=== PATIENT | female | born 1960 | race Caucasian/White ===

== ENCOUNTER 2022-02-23 15:02 | Outpatient (REF) | payer OTHER, SELFPAY ==
--- NOTE | ~2022-02-23 | CT_ITS ---
EXAMINATION: CT CHEST SCREENING CLINICAL INFORMATION: Current smoker. 46. COMPARISON: Previous chest x-ray 2006 TECHNIQUE: Multidetector volumetric CT imaging of the chest is performed without contrast using low dose technique. Additional 2D coronal and sagittal reformatted images and axial 3D maximum intensity projection (MIP) images are generated on the CT workstation. This CT examination was performed using dose optimization techniques as appropriate, variously including the following: *Automated exposure control *Adjustment of mA and/or kV according to patient size (this includes techniques or standardized protocols for targeted exams where dose is matched to indication/reason for exam; i.e. extremities or head) *Use of iterative reconstruction technique DLP: 56 mGy-cm FINDINGS: LUNGS: There is evidence of emphysema. There is a 2 mm noncalcified right middle lobe nodule axial image 247 series 5. There is focal bronchiectasis in the anterior basal right lower lobe at the costophrenic angle example axial image 336 series 5. There is a 3 mm peripheral or subpleural calcified right lower lobe nodule axial image 263 series 5. MEDIASTINUM: The mediastinum is normal. CORONARY ARTERY CALCIFICATION: None visualized on this study. PLEURA: There is no pleural effusion. No pleural mass or thickening. AXILLA: No lymphadenopathy. UPPER ABDOMEN: Unremarkable OSSEOUS STRUCTURES: Degenerative changes of the spine. CT/CT lung screening IMPRESSION: Emphysema. Small pulmonary nodules. Mild focal bronchiectasis in the right lower lobe. ASSESSMENT: Lung-RADS category 2: Benign RECOMMENDATION: Annual low-dose chest CT follow-up recommended.
== END 2022-02-23 15:03 | disposition home or self-care (01) ==
LOC: HO.CT 15:02
PROVIDERS: PCP Internal Medicine Geriatric Medicine; Visit Provider Physician Assistant Medical
DX: Z12.2 Encounter for screening for malignant neoplasm of respiratory organs (principal); F17.210 Nicotine dependence, cigarettes, uncomplicated
CPT/HCPCS: 71271; G0296

== ENCOUNTER 2022-11-13 15:07 | Outpatient (REF) | payer OTHER, SELFPAY | END 2022-11-13 15:08 | disposition home or self-care (01) | LOC: HO.HHCX 15:07 | PROVIDERS: Visit Provider Registered Nurse | DX: M54.12 Radiculopathy, cervical region (principal) | CPT/HCPCS: 72050 ==

== ENCOUNTER 2022-12-27 12:49 | Outpatient (AMB) | payer OTHER, SELFPAY ==
--- NOTE | 2022-12-27 13:03 | A.OFFVIS_ITS ---
Intake Vital Signs 12/27/22 13:14 Weight 180 lb 2 oz BP 140/82 H Blood Pressure Location Lt brachial Position Sitting Respiration 16 Pulse 83 Pulse Source Pulse Oximeter Pulse Oximetry (%) 97 Oxygen Delivery Method Room Air Intake Visit Reasons: Cervical Radiculopathy Allergies Penicillins Allergy (Verified 12/27/22 13:14) Unknown HPI HPI Comments History of Present Illness Details Patricia is a very pleasant 62 year old female who presents to the office today for evaluation and management of her left shoulder/neck pain. Patient reports the pain started last month, she was given flexeril and prednisone at her pcp office, had an xray of cspine and was referred here. Today patient reports pain is 0/10. She reports the pain is well controlled during the day but will wake her up at night. She states that she is not able to lift heavy objects with her right arm and she experiences tingling of her right 5th finger but no numbness or tingling to any other part of her right upper extremity. She denies pain with range of motion of her head neck or shoulders. Of note patient has large growth to left side of her neck. She is currently undergoing treatment and states that she is scheduled for surgical removal of a noncancerous tumor. Patient has tried NSAIDs, muscle relaxers and prednisone taper. She has not tried physical therapy, chiropractor, acupuncture, massage or injections. In terms of muscle damage condition is described as pulsing, throbbing, pounding, pinching, cramping and crushing. Pain is impacting her ability to sleep normally, perform activities daily living and function normally. [facility] Medical History (Updated 12/27/22 @ 13:21 by Lissy Singh APRN, SENIOR CARE SPECIALIST) Asthma Depression Lumbar herniated disc Nicotine dependence, cigarettes, uncomplicated Personal history of nicotine dependence Surgical History (Updated 02/23/22 @ 14:47 by Delmy Molina PA-C) History of hysterectomy History of surgery on right wrist Social History (Updated 02/23/22 @ 15:05 by Delmy Molina PA-C) Alcohol intake: current Alcohol intake frequency: holidays/special occasions only Patient Tobacco Use Status: Current everyday Tobacco user Tobacco use type: Cigarette Years Smoked: (onset 16yo , 1/2-1ppd x 45yrs, 30+PYH) Review of Systems Const All systems reviewed & are unremarkable except as noted in HPI and below Physical Exam Vital Signs: Last Vital Signs Pulse 83 12/27/22 13:14 Resp 16 12/27/22 13:14 BP 140/82 H 12/27/22 13:14 Pulse Ox 97 12/27/22 13:14 Oxygen Delivery Method Room Air 12/27/22 13:14 General: awake, alert, oriented. Answers questions appropriately. Fully engaged in examination. Skin: warm, dry, intact without visible rashes or lesions. HEENT: Normocephalic. Conjuntivae clear without exudate. Sclera non-icteric. Hearing intact. Large growth noted lateral left neck. Cardiac: External chest normal in appearance. Respiratory: No signs of trauma. No signs of respiratory distress. No cough, audible wheezing or stridor. Abdomen: without gross distension. MS: No obvious swelling or deformities. Able to transition from sit to stand unassisted. Ambulates with bilaterally normal heel strike and toe off Neurological: Oriented to person, place, time and situation. Thought process intact. No gait abnormalities appreciated. Psychiatric: Appropriate mood and affect. Good judgment and insight. Back/Spine/Pelvis Other: Cervical Spine: Visible inspection without gross abnormality Moderate tenderness throughout right middle trapezius muscles, with palpable trigger points noted. Nontender to palpation over paraspinal muscles Nontender to palpation over cervical vertebrae Patient with full cervical ROM in all planes ? Spurling compression test negative. Elvey's tension test negative Lhermitte's test negative. BUE strength 5/5 DTR symmetrical and intact bilaterally.? 2+ radial pulses.? Extrem Right upper extremity: shoulder/upper arm Details: normal ROM; no tenderness and no swelling Results Reviewed Results Reviewed: 11/13/2022 EXAMINATION: XR CERVICAL SPINE FINDINGS: There is lordotic straightening. C5-C6 and C6-C7 disc space narrowing and spurring. Multilevel neuroforaminal narrowings most pronounced right C3-C4, and bilateral C5-C6 and C6-C7 levels. Odontoid is intact, posterior elements are aligned and no prevertebral soft tissue swelling seen. Nuchal calcification. Lung apices are clear. IMPRESSION: Cervical spondylosis with neuroforaminal narrowings as described. Assessment & Plan Assessment & Plan (1) Neuropathy: Comment: right 5th digit Code(s): G62.9 - Polyneuropathy, unspecified (2) Trapezius muscle strain: Code(s): S46.819A - Strain of other muscles, fascia and tendons at shoulder and upper arm level, unspecified arm, initial encounter Plan Patricia is a very pleasant 62-year-old female who presented to the office today for evaluation management of acute right arm, neck and shoulder pain with associated tingling of her right 5th digit. Given patients current report of 0/10 pain, assessment to determine main pain generator is difficult. Moderate tenderness to right middle trapezius with palpable trigger points. Plan for physical therapy eval and treat. Order has been placed. Patient offered refill of her muscle relaxers which she declined. She was instructed to call the office if she reconsiders. EMG ordered to evaluate neuropathy of the right hand/5th digit. All questions and concerns have been answered and patient agrees with the plan. Follow up after PT/EMG, sooner if needed. Orders: Orders NE electromyogram (EMG) Today G62.9 - Polyneuropathy, unspecified PT Evaluation and Treatment Today S46.819A - Strain of other muscles, fascia and tendons at shoulder and upper arm level, unspecified arm, initial encounter Coding Level of Care Code New Pt Level 4 (55330) Diagnoses Neuropathy G62.9 Trapezius muscle strain S46.819A
[2022-12-27 13:14] VITALS: BP 140/82; PULSE 83; RESP 16; O2SAT 97
== END 2022-12-27 13:16 | disposition home or self-care (01) ==
PROVIDERS: PCP Internal Medicine Geriatric Medicine; Visit Provider Registered Nurse Emergency
DX: G62.9 Polyneuropathy, unspecified (principal); S46.819A Strain of other muscles, fascia and tendons at shoulder and upper arm level, unspecified arm, initial encounter
CPT/HCPCS: 99204

== ENCOUNTER → 2022-12-27 12:49 | Outpatient (BNVA) | payer OTHER, SELFPAY | PROVIDERS: PCP Internal Medicine Geriatric Medicine; Visit Provider Registered Nurse Emergency | DX: S46.819A Strain of other muscles, fascia and tendons at shoulder and upper arm level, unspecified arm, initial encounter (principal); G62.9 Polyneuropathy, unspecified | CPT/HCPCS: 99202 ==

== ENCOUNTER 2023-01-28 13:55 | Outpatient (REF) | payer OTHER, SELFPAY ==
[2023-01-28 15:56] LABS: MANUAL DIFF FLAG NO
[2023-01-28 16:07] LABS: Basophils Percent Auto 0.4 % (0-2); Eosinophils Absolute Auto 0.2 X10*3/uL (0.0-0.4); Eosinophils Percent Auto 2.2 % (0-4); Hematocrit 41.1 % (37.0-47.0); Hemoglobin 13.4 g/dl (12.0-16.0); Imm Gran Abs Auto 0.02 X10*3/uL (0.00-0.03); Imm Gran Pct Auto 0.3 % (0.0-0.4); Lymphocytes Absolute Auto 2.1 X10*3/uL (1.2-4.9); Lymphocytes Percent Auto 29.7 % (20-40); Mean Corpuscular HGB Conc 32.6 g/dl (31.0-35.0); Mean Corpuscular Volume 91.9 fL (80.0-98.0); Mean Platelet Volume 10.8 fL (9.4-12.3); Monocytes Absolute Auto 0.3 X10*3/uL (0.1-1.2); Monocytes Percent Auto 4.8 % (2-11); Neutrophils Absolute Auto 4.3 x10*3/uL (2.0-8.3); Neutrophils Percent Auto 62.6 % (45-73); Platelet Count 323 X10*3/uL (160-400); Red Blood Count 4.47 X10*6/uL (4.20-5.50); Red Cell Distribution Width 12.9 % (11.0-16.0); White Blood Count 6.9 X10*3/uL (4.8-10.8)
[2023-01-28 16:26] LABS: Anion Gap 9 (12-20); Blood Urea Nitrogen 12 mg/dL (9-16); Calcium 9.6 mg/dL (8.4-10.2); Carbon Dioxide 25 mmol/L (22-29); Chloride 111 mmol/L (96-108); Estimated Glomerular Filt Rate > 60; Glucose Random 84 mg/dL (60-115); Potassium 3.8 mmol/L (3.3-5.1); Sodium 141 mmol/L (135-145)
== END 2023-01-28 13:56 | disposition home or self-care (01) ==
LOC: HO.HHCL 13:55
PROVIDERS: Visit Provider Internal Medicine Geriatric Medicine
DX: I10 Essential (primary) hypertension (principal); D11.0 Benign neoplasm of parotid gland
CPT/HCPCS: 36415; 80048; 85025

== ENCOUNTER 2023-02-07 07:56 | Outpatient (REF) | payer OTHER, SELFPAY ==
--- NOTE | 2023-02-07 08:31 | EMG_ITS ---
Right median and ulnar motor and sensory studies were performed. Right radial sensory study was performed and paraspinal muscles were tested with a needle. IMPRESSION: 1. Mild right median neuropathy across carpal tunnel. 2. Mild right ulnar neuropathy across cubital tunnel. MD KARMA Ureña/FRANCO / [id number]
== END 2023-02-07 07:57 | disposition home or self-care (01) ==
LOC: HO.NEURO 07:56
PROVIDERS: PCP Internal Medicine Geriatric Medicine; Visit Provider Registered Nurse Emergency
DX: G62.9 Polyneuropathy, unspecified (principal)
CPT/HCPCS: 95886; 95910

== ENCOUNTER 2023-02-12 11:04 | Outpatient (REF) | payer OTHER, SELFPAY ==
--- NOTE | ~2023-02-12 | MR_ITS ---
EXAMINATION: MR CERVICAL SPINE WITHOUT CONTRAST CLINICAL INFORMATION: Radiculopathy COMPARISON: None TECHNIQUE: MRI of the cervical spine was obtained using routine sequences without contrast. FINDINGS: The craniocervical junction is intact. The cervical lordosis is preserved. Trace retrolisthesis at C5-C6. Vertebral body heights are normal without acute compression fracture. No suspicious osseous lesion. Intraosseous hemangioma within the T2 vertebral body. Multilevel disc desiccation with moderate C5-C6 and C6-C7 and otherwise milder disc height loss. There are multilevel degenerative changes with level by level detail as follows: C2-C3: Disc osteophyte complex with bilateral uncovertebral joint hypertrophy and right greater than left facet arthrosis. No spinal canal stenosis. Moderate right without left neural foraminal stenosis. C3-C4: Disc osteophyte complex with bilateral uncovertebral joint hypertrophy and bilateral facet arthrosis, severe and hypertrophic on the left. No spinal canal stenosis. Severe right without left neural foraminal stenosis. C4-C5: Disc osteophyte complex with superimposed central disc protrusion, bilateral uncovertebral joint hypertrophy and bilateral facet arthrosis with ligamentum flavum thickening. Moderate to severe spinal canal stenosis with cord impingement and ventral cord flattening, severe left and moderate right neural foraminal stenosis. C5-C6: Disc osteophyte complex with broad-based paracentral disc protrusion, bilateral uncovertebral joint hypertrophy and bilateral facet arthrosis with ligamentum flavum thickening. Severe spinal canal stenosis with cord compression and presumed chronic compressive myelopathy/myelomalacia within the bilateral dorsal cord and severe bilateral neural foraminal stenosis. C6-C7: Disc osteophyte complex with bilateral uncovertebral joint hypertrophy and mild lateral facet arthrosis. Mild spinal canal narrowing with suggestion of ventral cord flattening and severe bilateral neural foraminal stenosis. C7-T1: Asymmetric right uncovertebral joint hypertrophy with right foraminal disc protrusion contributing to severe right neural foraminal stenosis and compression of the exiting right C8 nerve root. No spinal canal or left neural foraminal stenosis. Right paracentral/foraminal disc osteophyte protrusion at T2-T3 causes flattening along the right ventral cord and moderate right neural foraminal stenosis with mass effect along the exiting right T2 nerve root. No epidural fluid collection, mass, or hematoma. No significant abnormalities of the paraspinal musculature. The flow voids of the major cervical vessels are maintained. Retropharyngeal course of the imaged distal right cervical ICA. The visualized intracranial structures are normal. Incompletely characterized 4.2 cm heterogeneous partially cystic lesion involving the superficial and to a lesser extent deep lobes of the left parotid gland with rind of soft tissue along its posteromedial margin, traversing septations, and fluid-hematocrit level. There is bulging of the overlying skin contour. ENT consultation advised to guide further management. MR/MR cervical spine wo con IMPRESSION: 1. Multilevel cervical spondylosis with severe spinal canal stenosis at C5-C6 with cord compression and presumed chronic compressive myelopathy/myelomalacia. Moderate to severe C4-C5 spinal canal stenosis with cord impingement. Varying degrees of severe bilateral neural foraminal stenosis, most pronounced on the right at C7-T1 where a right foraminal disc protrusion contributes to severe stenosis and compression of the exiting right C8 nerve root. Right paracentral/foraminal disc osteophyte protrusion at T2-T3 flattens the right ventral cord and contributes to moderate right neural foraminal stenosis with mass effect along the exiting right T2 nerve root. 2. 4.2 cm hemorrhagic and partially cystic/solid lesion involving the superficial greater than deep lobes of the left parotid gland for which ENT consultation and correlation with tissue fluid sampling is advised. Findings to be called to the ordering clinician by a [facility].
== END 2023-02-12 11:05 | disposition home or self-care (01) ==
LOC: HO.MRI 11:04
PROVIDERS: PCP Internal Medicine Geriatric Medicine; Visit Provider Registered Nurse
DX: M54.12 Radiculopathy, cervical region (principal)
CPT/HCPCS: 72141

== ENCOUNTER 2023-02-27 15:00 | Outpatient (RCR) | payer OTHER, SELFPAY ==
[2023-02-15 13:09] VITALS: BP 169/90
== END 2023-03-29 11:41 | disposition home or self-care (01) ==
LOC: HO.PT 15:00
PROVIDERS: PCP Internal Medicine Geriatric Medicine; Visit Provider Registered Nurse Emergency
DX: S46.811D Strain of other muscles, fascia and tendons at shoulder and upper arm level, right arm, subsequent encounter (principal); G62.9 Polyneuropathy, unspecified
CPT/HCPCS: 97110; 97140; 97161; 97530

== ENCOUNTER 2023-08-14 16:14 | Outpatient (REF) | payer OTHER, SELFPAY ==
[2023-08-14 17:43] LABS: MANUAL DIFF FLAG NO
[2023-08-14 18:15] LABS: Anion Gap 13 (12-20); Blood Urea Nitrogen 14 mg/dL (9-16); Calcium 10.1 mg/dL (8.4-10.2); Carbon Dioxide 27 mmol/L (22-29); Chloride 107 mmol/L (96-108); Estimated Glomerular Filt Rate > 60; Glucose Random 93 mg/dL (60-115); Potassium 4.3 mmol/L (3.3-5.1); Sodium 143 mmol/L (135-145)
[2023-08-14 18:20] LABS: Basophils Percent Auto 0.4 % (0-2); Eosinophils Absolute Auto 0.2 X10*3/uL (0.0-0.4); Eosinophils Percent Auto 2.9 % (0-4); Hemoglobin 13.4 g/dl (12.0-16.0); Imm Gran Abs Auto 0.02 X10*3/uL (0.00-0.03); Imm Gran Pct Auto 0.3 % (0.0-0.4); Lymphocytes Absolute Auto 2.6 X10*3/uL (1.2-4.9); Lymphocytes Percent Auto 34.9 % (20-40); Mean Corpuscular HGB Conc 33.5 g/dl (31.0-35.0); Mean Corpuscular Hemoglobin 30.4 pg (27.0-33.0); Mean Corpuscular Volume 90.7 fL (80.0-98.0); Mean Platelet Volume 10.3 fL (9.4-12.3); Monocytes Absolute Auto 0.4 X10*3/uL (0.1-1.2); Monocytes Percent Auto 5.1 % (2-11); Neutrophils Absolute Auto 4.1 x10*3/uL (2.0-8.3); Neutrophils Percent Auto 56.4 % (45-73); Platelet Count 344 X10*3/uL (160-400); Red Blood Count 4.41 X10*6/uL (4.20-5.50); Red Cell Distribution Width 12.9 % (11.0-16.0); White Blood Count 7.3 X10*3/uL (4.8-10.8)
== END 2023-08-14 16:15 | disposition home or self-care (01) ==
LOC: HO.HHCL 16:14
PROVIDERS: Visit Provider Family Medicine
DX: Z01.818 Encounter for other preprocedural examination (principal); I10 Essential (primary) hypertension
CPT/HCPCS: 36415; 80048; 85025

== ENCOUNTER 2023-09-25 14:11 | Outpatient (REF) | payer OTHER, SELFPAY ==
--- NOTE | ~2023-09-25 | MM_ITS ---
EXAMINATION: MM SCREENING DIGITAL BREAST TOMOSYNTHESIS, BILATERAL CLINICAL INFORMATION: Screening. Asymptomatic. COMPARISON: Mammography: No prior available. This will serve as the patient's new baseline exam. TECHNIQUE: Digital breast tomosynthesis is performed in both the craniocaudal and mediolateral oblique views along with computer-aided detection (CAD). Synthesized 2D images are generated from the tomosynthesis. FINDINGS: The breasts are almost entirely fatty (ACR BI-RADS breast composition Category a). There is a 5 mm intramammary lymph node with tiny fatty hilum in the upper outer aspect right breast, subdermally located. This is benign. There are no suspicious masses, suspicious grouped calcifications, or areas of architectural distortion in either breast. MM/MM tomosynthesis screening BI IMPRESSION: No mammographic evidence of malignancy. ASSESSMENT: BI-RADS BI-RADS 2 - Benign Findings RECOMMENDATION: Routine annual mammography screening. 1 year F/U This examination should not preclude the clinical evaluation of a suspicious palpable abnormality. This patient's information was entered into a reminder system with a target due date for their next mammogram.
== END 2023-09-25 14:12 | disposition home or self-care (01) ==
LOC: HO.MAMMO 14:11
PROVIDERS: PCP Internal Medicine Geriatric Medicine; Visit Provider Internal Medicine Geriatric Medicine
DX: Z12.31 Encounter for screening mammogram for malignant neoplasm of breast (principal)
CPT/HCPCS: 77063; 77067

== ENCOUNTER → 2023-09-25 14:45 | Outpatient (BNV) | payer OTHER, SELFPAY | PROVIDERS: PCP Internal Medicine Geriatric Medicine; Visit Provider Radiology Diagnostic Radiology | DX: Z12.31 Encounter for screening mammogram for malignant neoplasm of breast (principal) | CPT/HCPCS: 77063; 77067 ==

== ENCOUNTER 2023-12-16 10:04 | Outpatient (REF) | payer OTHER, SELFPAY ==
[2023-12-16 11:48] LABS: HIV AB/AG Nonreactive (Nonreactive); HIV Num 1 0.05 S/CO (0.00-0.99)
[2023-12-16 11:55] LABS: Erythrocyte Sedimentation Rate 19 MM/HR (0-20)
[2023-12-16 12:00] LABS: Alanine Aminotransferase 29 U/L (0-31); Albumin Level 4.1 g/dL (3.5-5.0); Alkaline Phosphatase 66 U/L (39-117); Anion Gap 12 (12-20); Aspartate Amino Transferase 20 U/L (5-31); Bilirubin Total 0.5 mg/dL (0.0-1.0); Blood Urea Nitrogen 14 mg/dL (9-16); C Reactive Protein 0.41 mg/dL (< or = 0.50); Calcium 9.4 mg/dL (8.4-10.2); Carbon Dioxide 24 mmol/L (22-29); Chloride 111 mmol/L (96-108); Estimated Glomerular Filt Rate > 60; Glucose Random 94 mg/dL (60-115); Potassium 4.1 mmol/L (3.3-5.1); Sodium 143 mmol/L (135-145); Total Protein 7.1 g/dL (6.5-8.0); Uric Acid 5.4 mg/dL (2.4-5.7)
[2023-12-16 12:02] LABS: Rheumatoid Factor < 13.0 IU/mL (<15.0)
[2023-12-16 12:20] LABS: TSH reflex Free T4 2.99 uIU/mL (0.32-4.0)
[2023-12-17 21:19] LABS: Anti DNA DS Antibody <1 IU/mL
[2023-12-18 02:18] LABS: Cyclic Citrullinated Peptide <16 UNITS
[2023-12-18 12:48] LABS: RPR Rapid Plasma Reagin NON-REACTIVE (NON-REACTIVE)
[2023-12-18 14:09] LABS: HCV Log PCR <1.18 NOT DETECTED Log IU/mL (NOT DETECTED); HepC Viral Load <15 NOT DETECTED IU/mL (NOT DETECTED)
== END 2023-12-16 10:05 | disposition home or self-care (01) ==
LOC: HO.HHCL 10:04
PROVIDERS: Visit Provider Internal Medicine
DX: M25.50 Pain in unspecified joint (principal)
CPT/HCPCS: 36415; 80053; 84443; 84550; 85652; 86140; 86200; 86225; 86431; 86592; 87389; 87522

== ENCOUNTER 2024-03-30 12:43 | Outpatient (AMB) | payer OTHER, SELFPAY ==
--- NOTE | 2024-03-30 12:47 | MHC.OFFVIS ---
Vital Signs 03/30/24 12:58 Height 5 ft 6 in Weight 202 lb 13.204 oz BMI 32.7 BP 140/80 H Blood Pressure Location Rt brachial Position Sitting Pulse 72 Pulse Source Pulse Oximeter Pulse Oximetry (%) 95 Oxygen Delivery Method Room Air Intake Visit Reasons: Polyarthralgia/CM Intake Note: Patient presents for Polyarthralgia. feel pain in back of neck, right shoulder, both elbows, right hand, both wrist and fingers. I also feel pain on my lower back, both hips, both knees, and both ankles. I been feeling pain for 1 to 2 years. I tried Prednisone and it took some of the pain away. Allergies Penicillins Allergy (Verified 03/30/24 12:56) Unknown Medication List - Last Reconciled 03/30/24 by Robert Lee MD albuterol sulfate 90 mcg/actuation (Ventolin HFA) 2 puffs inhalation Q4-6H PRN benzonatate 200 mg PO TID PRN cyclobenzaprine 10 mg PO TID diclofenac sodium 75 mg PO BID loratadine 10 mg PO QAM oseltamivir 75 mg PO BID HPI Comments Details: This is a 63-year-old female who presents for evaluation of multiple joint pain. She states that she hurts all over especially in her neck, both hands especially the right hand, lower back, both hips, both knees. Works as a [employer]. She states that she can not lift anything with her hand because she gets right hand pain that shoots up all the way into her neck. She stated that she had surgery and has a metal plate in her right hand.. She takes Tylenol 2 tablets alternating with Motrin 2 tablets every 6-8 hours. She is unaware of any family history of an autoimmune rheumatic disease. [facility] Medical History Lumbar herniated disc Asthma Nicotine dependence, cigarettes, uncomplicated Depression Personal history of nicotine dependence Surgical History History of surgery on right wrist History of hysterectomy Family History Mother History of arthritis Social History Alcohol intake: current Alcohol intake frequency: holidays/special occasions only Patient Tobacco Use Status: Current everyday Tobacco user Tobacco use type: Cigarette Years Smoked: (onset 16yo , 1/2-1ppd x 45yrs, 30+PYH) Review of Systems ENT Reports neck pain Musc Reports back pain, Reports arthralgias, Denies joint swelling, Reports neck pain, Reports radiating pain into limb and Reports stiffness Physical Exam Vital Signs: Last Vital Signs Pulse 72 03/30/24 12:58 BP 140/80 H 03/30/24 12:58 Pulse Ox 95 03/30/24 12:58 Oxygen Delivery Method Room Air 03/30/24 12:58 BMI result Body Mass Index 32.7 Const General: cooperative, healthy appearing and comfortable Nutritional Appearance: obese Orientation/consciousness: patient oriented x3 Limitations: no limitations HEENT Head: Yes normocephalic and Yes atraumatic Mouth: moist mucous membranes Resp Effort & Inspection: normal respiratory effort and able to speak in complete sentences Skin General skin exam: no rashes or lesions noted Neuro General: patient oriented x3 Extrem Other: Osteoarthritic changes of both hands with squaring of the 1st CMC joints Right wrist tenderness and pain with full flexion but no swelling multiple tender MCPs right hand without swelling No PIP swelling or tenderness bilaterally No elbow pain with flexion-extension bilaterally Normal range of motion of shoulders Negative straight leg raise test bilaterally Bilateral knee crepitus Normal nailfold capillaroscopy Assessment & Plan Assessment & Plan (1) Generalized osteoarthritis: Code(s): M15.9 - Polyosteoarthritis, unspecified Category: Medical Plan: This is a 63 year old female who presents for evaluation of diffuse joint pain. Upon evaluation I do not see any signs suggestive of an autoimmune rheumatic disease. RF/CCP/dsDNA are negative and inflammatory markers are normal. Clinical picture consistent with generalized osteoarthritis. I referred patient to PT called multiple areas as well as occupational therapy for bilateral hand arthritis. Follow-up with PCP Plan I spent 30 minutes reviewing patient's chart, evaluating patient, counseling patient and documenting in the chart Orders: Orders PT Evaluation and Treatment Today M17.0 - Bilateral primary osteoarthritis of knee, M50.30 - Other cervical disc degeneration, unspecified cervical region, M51.369 - Other intervertebral disc degeneration, lumbar region without mention of lumbar back pain or lower extremity pain, M70.61 - Trochanteric bursitis, right hip, M70.62 - Trochanteric bursitis, left hip OT Evaluation and Treatment Today M19.041 - Primary osteoarthritis, right hand, M19.042 - Primary osteoarthritis, left hand Coding Level of Care Code New Pt Level 3 (20869) Diagnoses Generalized osteoarthritis M15.9
[2024-03-30 12:58] VITALS: BP 140/80; PULSE 72; O2SAT 95; BMI 32.7
== END 2024-03-30 13:16 | disposition home or self-care (01) ==
LOC: HO.RHE 12:44
PROVIDERS: PCP Internal Medicine Geriatric Medicine; Visit Provider Student in an Organized Health Care Education/Training Program
DX: M15.9 Polyosteoarthritis, unspecified (principal)
CPT/HCPCS: 99203

== ENCOUNTER → 2024-03-30 12:43 | Outpatient (BNVA) | payer OTHER, SELFPAY | PROVIDERS: PCP Internal Medicine Geriatric Medicine; Visit Provider Student in an Organized Health Care Education/Training Program | DX: M15.9 Polyosteoarthritis, unspecified (principal); M17.0 Bilateral primary osteoarthritis of knee; M50.30 Other cervical disc degeneration, unspecified cervical region; M51.369 Other intervertebral disc degeneration, lumbar region without mention of lumbar back pain or lower extremity pain; M70.61 Trochanteric bursitis, right hip; M70.62 Trochanteric bursitis, left hip; M19.041 Primary osteoarthritis, right hand; M19.042 Primary osteoarthritis, left hand | CPT/HCPCS: 99202 ==